=== PATIENT | male | born 1980 | race Two or more races ===

== ENCOUNTER 2019-03-27 00:15 | Emergency (ER) | payer OTHER ==
[~2019-03-27] VITALS: Ht 180.3 cm; Wt 71.7 kg
[2019-03-27] MEDS ORDERED: LISINOPRIL10 MG (00:34)
[2019-03-27] MEDS ORDERED: LISINOPRIL10 MG PO (05:30)
== END 2019-03-27 05:55 | disposition home or self-care (01) ==
LOC: ER 00:15
DX: I16.0 Hypertensive urgency (principal); I10 Essential (primary) hypertension

== ENCOUNTER → 2019-04-10 06:42 | Outpatient (CLI) | payer OTHER ==
[~2019-04-10 06:42] MED LIST: LISINOPRIL10 MG; LISINOPRIL10 MG PO
== END | disposition home or self-care (01) ==
LOC: LAB 06:42
DX: E03.8 Other specified hypothyroidism (principal); I10 Essential (primary) hypertension; E11.9 Type 2 diabetes mellitus without complications

== ENCOUNTER 2019-11-19 11:43 | Outpatient (CLI) | payer OTHER | END 2019-11-19 11:53 | disposition home or self-care (01) | LOC: NUCLEAR 11:43 | PROVIDERS: ATTEND Internal Medicine Cardiovascular Disease | DX: R00.2 Palpitations (principal); I11.9 Hypertensive heart disease without heart failure ==

== ENCOUNTER 2020-03-13 10:00 | Outpatient (CLI) | payer OTHER | END 2020-03-13 15:51 | disposition home or self-care (01) | LOC: PPH VACUNA 10:00 | DX: Z23 Encounter for immunization (principal) ==

== ENCOUNTER 2021-02-04 11:48 | Outpatient (CLI) | payer OTHER | END 2021-02-04 11:59 | disposition home or self-care (01) | LOC: SONOGRAMA 11:48 | PROVIDERS: ATTEND Internal Medicine Cardiovascular Disease | DX: M25.561 Pain in right knee (principal); M12.861 Other specific arthropathies, not elsewhere classified, right knee ==